=== PATIENT | male | born 1980 | race Caucasian/White ===

== ENCOUNTER 2016-04-29 19:15 | Emergency (ER) | payer MEDICARE, OTHER ==
[2016-04-29] MEDS ORDERED: PERCOCET 5MG/325MG TAB As Ordered ONE (21:07)
--- NOTE | 2016-04-29 22:05 | EDDOCDS ---
Nurse's Notes [facility] Name: Salbador Maldonado Age: 36 yrs Sex: Male : 1980 Arrival Date: 04/29/2016 Time: 19:15 Bed 17 Private MD: [place] Maria, [place] Diagnosis: Contusion of right elbow;Fall (on) (from) other stairs and steps Presentation: 04/29 19:35 Presenting complaint: Patient states: Pt down back stairs landing on right shoulder and ld5 elbow a couple of hours ago. Pt presents to ER with difficulty straightening arm. Adult Sepsis Screening: The patient does not have new or worsening altered mentation. Patient's respiratory rate is less than 22. Systolic blood pressure is greater than 100. Patient has a qSOFA score of 0- Negative Sepsis Screen. Suicide/Homicide risk assessment- the patient denies having any suicidal and/or homicidal ideations and does not present with any other emotional, behavioral or mental health complaints. Status: Patient is not a library services coordinator or dependent. Transition of care: patient was not received from another setting of care. 19:35 Acuity: MEET Level 4 ld5 19:35 Method Of Arrival: Walkin/Carried/Asstd ld5 Triage Assessment: 19:41 General: Appears in no apparent distress. Pain: Location: right arm Pain currently is 7 ld5 out of 10 on a pain scale. HIV screening NA for this visit Offered previously. Neurological: Level of Consciousness is awake, alert. Respiratory: Airway is patent Respiratory effort is even, unlabored. Musculoskeletal: Range of motion limited in right elbow Reports "sounds like something cracks when I try and move my arm". Historical: - Allergies: small pox vaccine; - Home Meds: 1. none - PMHx: fractured L3, L4, L5 vertebrae; Hypertension; PTSD; Adjustment disorder; Anxiety; Depression; - PSHx: C3 surgical repair; right ear surgery 1995; throat surgery 1993; meniscus and ACL repair bilaterally; right leg reconstruction 1980; right shoulder scoped 1991; ruptured both calf muscles; Right Tib/Fib/Femur Fracture Repair 1980; repair of broken jaw 1989; left knee surgery; - Social history: Smoking status: Patient uses tobacco products, current every day smoker. No barriers to communication noted, The patient speaks fluent Japanese, Speaks appropriately for age. - Family history: Not pertinent. - : The pt / caregiver states he / she is not on anticoagulants. Home medication list is obtained from the patient. - Exposure Risk Screening:: None identified. Screenin:02 Screening information is obtained from the patient. Fall risk: No risks identified. cf2 Assistance ADL's: requires no assistance with activities of daily living. Abuse/DV Screen: The patient / caregiver reports he/she is: not in a situation that causes fear, pain or injury. Nutritional screening: No deficits noted. Advance Directives: Further advance directive information is declined. home support is adequate. Assessment: 22:02 Reassessment: Patient appears in no apparent distress at this time. Patient states cf2 feeling better. Patient states symptoms have improved. General: Appears in no apparent distress, comfortable, Behavior is appropriate for age, cooperative. Pain: Location: right arm. Cardiovascular: No deficits noted. GI: No deficits noted. Musculoskeletal: No deficits noted. Injury Description: pt fell from standing. Vital Signs: 19:17 BP 161 / 79; Pulse 90; Resp 18 S; Temp 96.9(O); Pulse Ox 98% on R/A; Weight 136.08 kg gr2 (R); Height 74 in. (187.96 cm) (R); Pain 7/10; 19:17 Body Mass Index 38.52 (136.08 kg, 187.96 cm) gr2 Vitals: 19:17 Log In Time: April 29, 2016 at 19:17. gr2 ED Course: 19:16 Patient visited by Gomez Us. gr2 19:16 Patient moved to Waiting gr2 19:17 [facility] is Private Physician. gr2 19:18 Patient visited by Gomez Us. gr2 19:18 Patient moved to Pre RCE gr2 19:37 Triage Initiated ld5 19:42 Patient visited by Tosha Wren RN. ld5 20:51 Dewayne Barbosa FNP is [facility]. ke 20:51 Patient visited by Dewayne Barbosa FNP. ke 20:51 Patient visited by Dewayne Barbosa FNP. ke 20:51 Marifer Gaston,RN is Primary Nurse. cf2 20:51 Patient visited by Marifer Gaston,YOSEF. cf2 20:51 Patient moved to 17 cz 21:24 Patient visited by Dewayne Barbosa FNP. ke 21:32 [facility], [place] is Referral Physician. ke 21:56 Patient visited by Elder Gutierrez PCA. kb5 22:02 Patient visited by Marifer Gaston RN. cf2 22:02 The patient / caregiver is instructed regarding the plan of care and ED course. Patient cf2 has correct armband on for positive identification. Placed in gown. Bed in low position. Call light in reach. Side rails up X 1. Side rails up X2. Property :Personal belongings accompany Pt. 22:02 No IV's were initiated during this patient's visit. No procedures done that require cf2 assistance. 22:04 Nitin Bhardwaj DO is Attending Physician. cf2 Administered Medications: 21:13 Drug: oxyCODONE-acetaminophen 2 tabs [oxycodone-acetaminophen 5 mg-325 mg tablet (2 cf2 tabs)] Route: PO; 22:04 Follow up: Response: No significant change. cf2 Order Results: There are currently no results for this order. Outcome: 21:33 Discharge ordered by Provider. ke 22:02 Discharge Assessment: Patient awake, alert and oriented x 3. No cognitive and/or cf2 functional deficits noted. Patient verbalized understanding of disposition instructions. Patient Oriented to person, place and time. patient administered narcotics - yes. Pt provided with safe discharge. The following High Risk Discharge criteria are identified: None. Discharged to home. Condition: stable Condition: improved. Discharge instructions given to patient, Instructed on discharge instructions, follow up and referral plans. medication usage, Demonstrated understanding of instructions, medications, Prescriptions given X 2. No special radiology studies were completed. 22:04 Patient left the ED. cf2 Signatures: Blayne Raymundo, RN RN cz Dewayne Barbosa FNP FNP ke [place], Kristopher, PCA DRILLING SUPERVISOR kb5 Tosha Wren RN RN ld5 Gomez Us 2 Marifer Gaston,YOSEF RN cf2 MTDD
--- NOTE | 2016-04-29 22:05 | EDDOCDS ---
Physician Documentation [facility] Name: Salbador Maldonado Age: 36 yrs Sex: Male : 1980 Arrival Date: 04/29/2016 Time: 19:15 Bed 17 Private MD: [facility] Disposition: 04/29/16 21:33 Discharged to Home/Self Care. Impression: Contusion of right elbow, Fall (on) (from) other stairs and steps. - Condition is Stable. - Discharge Instructions: Fall Prevention and Home Safety, Elbow Contusion. - Prescriptions for Ibuprofen 600 mg Oral Tablet - take 1 tablet by ORAL route every 6 hours As needed take with food; 30 tablet. Zanaflex 4 mg Oral Tablet - take 1 tablet by ORAL route every 8 hours As needed; 20 tablet. - Medication Reconciliation, Local Pharmacy Hours form. - Follow up: [facility]; When: As needed; Reason: Recheck today's complaints, Continuance of care. - Problem is new. - Symptoms are unchanged. - Notes: ice 20 min an hour Historical: - Allergies: small pox vaccine; - Home Meds: 1. none - PMHx: fractured L3, L4, L5 vertebrae; Hypertension; PTSD; Adjustment disorder; Anxiety; Depression; - PSHx: C3 surgical repair; right ear surgery 1995; throat surgery 1993; meniscus and ACL repair bilaterally; right leg reconstruction 1980; right shoulder scoped 1991; ruptured both calf muscles; Right Tib/Fib/Femur Fracture Repair 1980; repair of broken jaw 1989; left knee surgery; - Social history: Smoking status: Patient uses tobacco products, current every day smoker. No barriers to communication noted, The patient speaks fluent Bulgarian, Speaks appropriately for age. - Family history: Not pertinent. - : The pt / caregiver states he / she is not on anticoagulants. Home medication list is obtained from the patient. - Exposure Risk Screening:: None identified. Vital Signs: 04/29 19:17 BP 161 / 79; Pulse 90; Resp 18 S; Temp 96.9(O); Pulse Ox 98% on R/A; Weight 136.08 kg / gr2 300.01 lbs (R); Height 74 in. (187.96 cm) (R); Pain 7/10; 19:17 Body Mass Index 38.52 (136.08 kg, 187.96 cm) gr2 MDM: 21:01 oxyCODONE-acetaminophen 5 mg-325 mg 2 tabs PO once ordered. ke 21:02 Elbow, Complete Ordered. EDMS 21:02 Humerus Ordered. EDMS Administered Medications: 21:13 Drug: oxyCODONE-acetaminophen 2 tabs [oxycodone-acetaminophen 5 mg-325 mg tablet (2 cf2 tabs)] Route: PO; 22:04 Follow up: Response: No significant change. cf2 Signatures: Dispatcher [employer] EDMS Dewayne Barbosa, METAL CHECKER METAL CHECKER Tosha Baum,RN RN ld5 Marifer Gaston,RN RN cf2 MTDD
--- NOTE | 2016-04-30 07:52 | REP ---
Clinical: Trauma. Technique: AP and lateral views of the right humerus. Findings: No acute fracture or dislocation. Skeletal structures, joint spaces, and surrounding soft tissues are normal for age. No subcutaneous emphysema or radiodense foreign body. Impression: No acute fracture or dislocation Signed by Mike Cruz MD 04/30/2016 07:44 A
--- NOTE | 2016-04-30 07:53 | REP ---
Clinical: Trauma . Technique: AP, lateral, bilateral oblique views of the right elbow. Findings: No acute fracture or dislocation is appreciated. Joint spaces and surrounding soft tissues appear normal. Lateral view demonstrates normal positioning to the anterior and posterior fat pads without evidence for effusion/hemarthrosis. No subcutaneous emphysema or foreign body identified. Impression: Normal right elbow radiographs. Signed by Mike Cruz MD 04/30/2016 07:44 A
--- NOTE | 2016-05-01 23:05 | EDDOCDS ---
Nurse's Notes [facility] Name: Salbador Maldonado Age: 36 yrs Sex: Male : 1980 Arrival Date: 04/29/2016 Time: 19:15 Bed 17 Private MD: [place] Maria, [place] Diagnosis: Contusion of right elbow;Fall (on) (from) other stairs and steps Presentation: 04/29 19:35 Presenting complaint: Patient states: Pt down back stairs landing on right shoulder and ld5 elbow a couple of hours ago. Pt presents to ER with difficulty straightening arm. Adult Sepsis Screening: The patient does not have new or worsening altered mentation. Patient's respiratory rate is less than 22. Systolic blood pressure is greater than 100. Patient has a qSOFA score of 0- Negative Sepsis Screen. Suicide/Homicide risk assessment- the patient denies having any suicidal and/or homicidal ideations and does not present with any other emotional, behavioral or mental health complaints. Status: Patient is not a engine repairer service or dependent. Transition of care: patient was not received from another setting of care. 19:35 Acuity: MEET Level 4 ld5 19:35 Method Of Arrival: Walkin/Carried/Asstd ld5 Triage Assessment: 19:41 General: Appears in no apparent distress. Pain: Location: right arm Pain currently is 7 ld5 out of 10 on a pain scale. HIV screening NA for this visit Offered previously. Neurological: Level of Consciousness is awake, alert. Respiratory: Airway is patent Respiratory effort is even, unlabored. Musculoskeletal: Range of motion limited in right elbow Reports "sounds like something cracks when I try and move my arm". Historical: - Allergies: small pox vaccine; - Home Meds: 1. none - PMHx: fractured L3, L4, L5 vertebrae; Hypertension; PTSD; Adjustment disorder; Anxiety; Depression; - PSHx: C3 surgical repair; right ear surgery 1995; throat surgery 1993; meniscus and ACL repair bilaterally; right leg reconstruction 1980; right shoulder scoped 1991; ruptured both calf muscles; Right Tib/Fib/Femur Fracture Repair 1980; repair of broken jaw 1989; left knee surgery; - Social history: Smoking status: Patient uses tobacco products, current every day smoker. No barriers to communication noted, The patient speaks fluent South African, Speaks appropriately for age. - Family history: Not pertinent. - : The pt / caregiver states he / she is not on anticoagulants. Home medication list is obtained from the patient. - Exposure Risk Screening:: None identified. Screenin:02 Screening information is obtained from the patient. Fall risk: No risks identified. cf2 Assistance ADL's: requires no assistance with activities of daily living. Abuse/DV Screen: The patient / caregiver reports he/she is: not in a situation that causes fear, pain or injury. Nutritional screening: No deficits noted. Advance Directives: Further advance directive information is declined. home support is adequate. Assessment: 22:02 Reassessment: Patient appears in no apparent distress at this time. Patient states cf2 feeling better. Patient states symptoms have improved. General: Appears in no apparent distress, comfortable, Behavior is appropriate for age, cooperative. Pain: Location: right arm. Cardiovascular: No deficits noted. GI: No deficits noted. Musculoskeletal: No deficits noted. Injury Description: pt fell from standing. Vital Signs: 19:17 BP 161 / 79; Pulse 90; Resp 18 S; Temp 96.9(O); Pulse Ox 98% on R/A; Weight 136.08 kg gr2 (R); Height 74 in. (187.96 cm) (R); Pain 7/10; 19:17 Body Mass Index 38.52 (136.08 kg, 187.96 cm) gr2 Vitals: 19:17 Log In Time: April 29, 2016 at 19:17. gr2 ED Course: 19:16 Patient visited by Gomez Us. gr2 19:16 Patient moved to Waiting gr2 19:17 [place] is Private Physician. gr2 19:18 Patient visited by Gomez Us. gr2 19:18 Patient moved to Pre RCE gr2 19:37 Triage Initiated ld5 19:42 Patient visited by Tosha Wren RN. ld5 20:51 [facility]. ke 20:51 Patient visited by Dewayne Barbosa FNP. ke 20:51 Patient visited by Dewayne Barbosa FNP. ke 20:51 Marifer Gaston,RN is Primary Nurse. cf2 20:51 Patient visited by Marifer Gaston,YOSEF. cf2 20:51 Patient moved to 17 cz 21:24 Patient visited by Dewayne Barbosa FNP. ke 21:32 [facility], [place] is Referral Physician. ke 21:56 Patient visited by Elder Gutierrez PCA. kb5 22:02 Patient visited by Marifer Gaston RN. cf2 22:02 The patient / caregiver is instructed regarding the plan of care and ED course. Patient cf2 has correct armband on for positive identification. Placed in gown. Bed in low position. Call light in reach. Side rails up X 1. Side rails up X2. Property :Personal belongings accompany Pt. 22:02 No IV's were initiated during this patient's visit. No procedures done that require cf2 assistance. 22:04 Nitin Bhardwaj DO is Attending Physician. cf2 04/30 08:26 Humerus Returned. EDMS 08:26 Elbow, Complete Returned. EDMS 12:12 T-Sheet-- Draft Copy was scanned into [employer] and attached to record. gb Administered Medications: 04/29 21:13 Drug: oxyCODONE-acetaminophen 2 tabs [oxycodone-acetaminophen 5 mg-325 mg tablet (2 cf2 tabs)] Route: PO; 22:04 Follow up: Response: No significant change. cf2 Order Results: Radiology Order: Elbow, Complete Test: Elbow, Complete REASON FOR EXAMINATION: Trauma; Clinical: Trauma .; ; Technique: AP, lateral, bilateral oblique views of the right elbow.; ; Findings:; No acute fracture or dislocation is appreciated. Joint spaces and surrounding; soft tissues appear normal. Lateral view demonstrates normal positioning to the; anterior and posterior fat pads without evidence for effusion/hemarthrosis. No; subcutaneous emphysema or foreign body identified.; ; Impression:; Normal right elbow radiographs.; ; ; Signed by; Mike Cruz MD 04/30/2016 07:44 A; Radiology Order: Humerus Test: Humerus REASON FOR EXAMINATION: Trauma; Clinical: Trauma.; ; Technique: AP and lateral views of the right humerus.; ; Findings:; No acute fracture or dislocation. Skeletal structures, joint spaces, and; surrounding soft tissues are normal for age. No subcutaneous emphysema or; radiodense foreign body.; ; Impression:; No acute fracture or dislocation; ; ; Signed by; Mike Cruz MD 04/30/2016 07:44 A; Outcome: 21:33 Discharge ordered by Provider. gary 22:02 Discharge Assessment: Patient awake, alert and oriented x 3. No cognitive and/or cf2 functional deficits noted. Patient verbalized understanding of disposition instructions. Patient Oriented to person, place and time. patient administered narcotics - yes. Pt provided with safe discharge. The following High Risk Discharge criteria are identified: None. Discharged to home. Condition: stable Condition: improved. Discharge instructions given to patient, Instructed on discharge instructions, follow up and referral plans. medication usage, Demonstrated understanding of instructions, medications, Prescriptions given X 2. No special radiology studies were completed. 22:04 Patient left the ED. cf2 Signatures: Dispatcher [employer] EDMS Blayne Raymundo, RN RN Harleen Menjivar, Matthew Reg Dewayne Mays, GLORY HOLE TENDER GLORY HOLE TENDER Elder Kirby, ANY CLASSROOM INSTRUCTIONAL AIDE kb5 Tosha Wren RN RN ld5 Gomez Us gr2 Marifer GastonRN RN cf2 Chart Complete NAYA
--- NOTE | 2016-05-01 23:05 | EDDOCDS ---
Physician Documentation [facility] Name: Salbador Maldonado Age: 36 yrs Sex: Male : 1980 Arrival Date: 04/29/2016 Time: 19:15 Bed 17 Private MD: [facility] Disposition: 04/29/16 21:33 Discharged to Home/Self Care. Impression: Contusion of right elbow, Fall (on) (from) other stairs and steps. - Condition is Stable. - Discharge Instructions: Fall Prevention and Home Safety, Elbow Contusion. - Prescriptions for Ibuprofen 600 mg Oral Tablet - take 1 tablet by ORAL route every 6 hours As needed take with food; 30 tablet. Zanaflex 4 mg Oral Tablet - take 1 tablet by ORAL route every 8 hours As needed; 20 tablet. - Medication Reconciliation, Local Pharmacy Hours form. - Follow up: [facility]; When: As needed; Reason: Recheck today's complaints, Continuance of care. - Problem is new. - Symptoms are unchanged. - Notes: ice 20 min an hour Historical: - Allergies: small pox vaccine; - Home Meds: 1. none - PMHx: fractured L3, L4, L5 vertebrae; Hypertension; PTSD; Adjustment disorder; Anxiety; Depression; - PSHx: C3 surgical repair; right ear surgery 1995; throat surgery 1993; meniscus and ACL repair bilaterally; right leg reconstruction 1980; right shoulder scoped 1991; ruptured both calf muscles; Right Tib/Fib/Femur Fracture Repair 1980; repair of broken jaw 1989; left knee surgery; - Social history: Smoking status: Patient uses tobacco products, current every day smoker. No barriers to communication noted, The patient speaks fluent Sinhala, Speaks appropriately for age. - Family history: Not pertinent. - : The pt / caregiver states he / she is not on anticoagulants. Home medication list is obtained from the patient. - Exposure Risk Screening:: None identified. Vital Signs: 04/29 19:17 BP 161 / 79; Pulse 90; Resp 18 S; Temp 96.9(O); Pulse Ox 98% on R/A; Weight 136.08 kg / gr2 300.01 lbs (R); Height 74 in. (187.96 cm) (R); Pain 7/10; 19:17 Body Mass Index 38.52 (136.08 kg, 187.96 cm) gr2 MDM: 21:01 oxyCODONE-acetaminophen 5 mg-325 mg 2 tabs PO once ordered. ke 21:02 Elbow, Complete Ordered. EDMS 21:02 Humerus Ordered. EDMS 04/30 12:12 T-Sheet-- Draft Copy was scanned into [employer] and attached to record. gb Administered Medications: 04/29 21:13 Drug: oxyCODONE-acetaminophen 2 tabs [oxycodone-acetaminophen 5 mg-325 mg tablet (2 cf2 tabs)] Route: PO; 22:04 Follow up: Response: No significant change. cf2 Signatures: Dispatcher [employer] EDMS Harleen Rico, Reg Reg gb Dewayne Barbosa, SATELLITE TV TECHNICIAN INSTALLER SATELLITE TV TECHNICIAN INSTALLER Tosha Baum,RN RN ld5 Marifer GastonRN RN cf2 The chart was reviewed and I authenticate all verbal orders and agree with the evaluation and treatment provided.Attachments: 04/30 12:12 T-Sheet-- Draft Copy gb Chart Complete MTDD
--- NOTE | 2016-05-01 23:05 | EDDOCDS ---
Physician Documentation [facility] Name: Salbador Maldonado Age: 36 yrs Sex: Male : 1980 Arrival Date: 04/29/2016 Time: 19:15 Bed 17 Private MD: [facility] Disposition: 04/29/16 21:33 Discharged to Home/Self Care. Impression: Contusion of right elbow, Fall (on) (from) other stairs and steps. - Condition is Stable. - Discharge Instructions: Fall Prevention and Home Safety, Elbow Contusion. - Prescriptions for Ibuprofen 600 mg Oral Tablet - take 1 tablet by ORAL route every 6 hours As needed take with food; 30 tablet. Zanaflex 4 mg Oral Tablet - take 1 tablet by ORAL route every 8 hours As needed; 20 tablet. - Medication Reconciliation, Local Pharmacy Hours form. - Follow up: [facility]; When: As needed; Reason: Recheck today's complaints, Continuance of care. - Problem is new. - Symptoms are unchanged. - Notes: ice 20 min an hour Historical: - Allergies: small pox vaccine; - Home Meds: 1. none - PMHx: fractured L3, L4, L5 vertebrae; Hypertension; PTSD; Adjustment disorder; Anxiety; Depression; - PSHx: C3 surgical repair; right ear surgery 1995; throat surgery 1993; meniscus and ACL repair bilaterally; right leg reconstruction 1980; right shoulder scoped 1991; ruptured both calf muscles; Right Tib/Fib/Femur Fracture Repair 1980; repair of broken jaw 1989; left knee surgery; - Social history: Smoking status: Patient uses tobacco products, current every day smoker. No barriers to communication noted, The patient speaks fluent Vietnamese, Speaks appropriately for age. - Family history: Not pertinent. - : The pt / caregiver states he / she is not on anticoagulants. Home medication list is obtained from the patient. - Exposure Risk Screening:: None identified. Vital Signs: 04/29 19:17 BP 161 / 79; Pulse 90; Resp 18 S; Temp 96.9(O); Pulse Ox 98% on R/A; Weight 136.08 kg / gr2 300.01 lbs (R); Height 74 in. (187.96 cm) (R); Pain 7/10; 19:17 Body Mass Index 38.52 (136.08 kg, 187.96 cm) gr2 MDM: 21:01 oxyCODONE-acetaminophen 5 mg-325 mg 2 tabs PO once ordered. ke 21:02 Elbow, Complete Ordered. EDMS 21:02 Humerus Ordered. EDMS 04/30 12:12 T-Sheet-- Draft Copy was scanned into [employer] and attached to record. gb Administered Medications: 04/29 21:13 Drug: oxyCODONE-acetaminophen 2 tabs [oxycodone-acetaminophen 5 mg-325 mg tablet (2 cf2 tabs)] Route: PO; 22:04 Follow up: Response: No significant change. cf2 Signatures: Dispatcher [employer] EDMS Harleen Rico, Reg Reg gb Dewayne Barbosa, MANAGER INTERFACE MANAGER INTERFACE Tosha Baum,RN RN ld5 Marifer GastonRN RN cf2 The chart was reviewed and I authenticate all verbal orders and agree with the evaluation and treatment provided.Attachments: 04/30 12:12 T-Sheet-- Draft Copy gb Chart Complete MTDD
== END 2016-04-29 22:04 | disposition home or self-care (01) ==
LOC: M ED 19:15
DX: S50.01XA Contusion of right elbow, initial encounter (principal); W10.8XXA Fall (on) (from) other stairs and steps, initial encounter; Y92.018 Other place in single-family (private) house as the place of occurrence of the external cause; Y93.89 Activity, other specified; Y99.8 Other external cause status; I10 Essential (primary) hypertension; F41.9 Anxiety disorder, unspecified; F43.20 Adjustment disorder, unspecified; F32.9 Major depressive disorder, single episode, unspecified; F43.10 Post-traumatic stress disorder, unspecified; Z87.81 Personal history of (healed) traumatic fracture; Z88.7 Allergy status to serum and vaccine

== ENCOUNTER 2016-08-27 12:04 | Emergency (ER) | payer MEDICARE, OTHER ==
[~2016-08-27] VITALS: Ht 188 cm; Wt 131.5 kg
[2016-08-27] MEDS ORDERED: LISI-542 PO (12:14)
[2016-08-27] MEDS ORDERED: ATOR1TAB21 PO (12:14)
[2016-08-27] MEDS ORDERED: NORCO, ANEXSIA 5/325MG TABLET (HYDROcodone/ACETAMINOPHEN) PO ONE (12:30)
[2016-08-27] MEDS ORDERED: HYDR-3713 PO (13:14)
[2016-08-27] MEDS ORDERED: AUGM875T27 PO (13:14)
[2016-08-27 13:20] VITALS: BP 141/78
--- NOTE | 2016-08-27 13:57 | REP ---
RIGHT FOOT SERIES: TWO VIEWS. HISTORY: Question foreign body at the base the 4th. FINDINGS: AP and lateral views of the right foot show no opaque foreign body. Overall mineralization pattern is normal. Joint spaces are preserved. IMPRESSION: Negative radiographs of the right foot. No opaque foreign body seen. Signed by Juvenal Gabriel MD 08/27/2016 03:06 P
== END 2016-08-27 13:23 | disposition home or self-care (01) ==
LOC: M ED 13:03
DX: S91.331A Puncture wound without foreign body, right foot, initial encounter (principal); W22.8XXA Striking against or struck by other objects, initial encounter; Y92.099 Unspecified place in other non-institutional residence as the place of occurrence of the external cause; Y93.89 Activity, other specified; Y99.9 Unspecified external cause status; I10 Essential (primary) hypertension; E66.9 Obesity, unspecified; F17.200 Nicotine dependence, unspecified, uncomplicated; Z79.899 Other long term (current) drug therapy; Z88.7 Allergy status to serum and vaccine

== ENCOUNTER 2016-09-13 22:31 | Emergency (ER) | payer MEDICARE, OTHER ==
[~2016-09-13] VITALS: Ht 185.4 cm; Wt 138.3 kg
[~2016-09-13 22:31] MED LIST: ATOR1TAB21 PO; AUGM875T27 PO; HYDR-3713 PO; LISI-542 PO
[2016-09-14] MEDS ORDERED: DICL500C PO (00:44)
[2016-09-14] MEDS ORDERED: DICLOXACILLIN 250 MG CAP PO SCH (00:45)
[2016-09-14 01:17] VITALS: BP 156/78
== END 2016-09-14 01:15 | disposition home or self-care (01) ==
LOC: M ED 09-14 00:55
DX: M70.21 Olecranon bursitis, right elbow (principal); I10 Essential (primary) hypertension; E78.5 Hyperlipidemia, unspecified; F17.200 Nicotine dependence, unspecified, uncomplicated; Z79.899 Other long term (current) drug therapy; Z88.7 Allergy status to serum and vaccine

== ENCOUNTER 2017-09-15 03:45 | Emergency (ER) | payer MEDICARE, OTHER ==
[2017-09-15] MEDS: CORTISPORIN OPHTH OINT 3.5 GM OU (04:45)
[2017-09-15] MEDS: TETRACAINE 0.5% OPHTH SOLN 4ML OU (04:45)
== END 2017-09-15 05:08 | disposition home or self-care (01) ==
LOC: M ED 03:45
DX: H10.9 Unspecified conjunctivitis (principal); I10 Essential (primary) hypertension; E78.5 Hyperlipidemia, unspecified; Z88.7 Allergy status to serum and vaccine
CPT/HCPCS: 99282

== ENCOUNTER 2018-02-21 08:39 | Emergency (ER) | payer MEDICARE, OTHER ==
[2018-02-21] MEDS: IBUPROFEN 800 MG TAB PO (09:24)
[2018-02-21] MEDS: ACETAMINOPHEN 325 MG TAB PO (09:24)
[2018-02-21] MEDS: IPRATROPIUM 0.5MG/ALBUTEROL 2.5MG INH SOL UD 3ML (DUONEB)(J7620) NEB (09:30)
[2018-02-21 10:04] LABS: INFLUENZA A AMPLIFICATION NEGATIVE (NEGATIVE); INFLUENZA B AMPLIFICATION NEGATIVE (NEGATIVE); RSV AMPLIFICATION NEGATIVE (NEGATIVE)
[2018-02-21] MEDS: cefTRIAXone SOD 1 GM VIAL (J0696) IM (10:21)
== END 2018-02-21 10:30 | disposition home or self-care (01) ==
LOC: M ED 08:39
DX: J18.9 Pneumonia, unspecified organism (principal); I10 Essential (primary) hypertension; F41.9 Anxiety disorder, unspecified; F43.10 Post-traumatic stress disorder, unspecified; Z87.820 Personal history of traumatic brain injury; F17.200 Nicotine dependence, unspecified, uncomplicated; Z88.7 Allergy status to serum and vaccine; Z79.899 Other long term (current) drug therapy
CPT/HCPCS: J0696

== ENCOUNTER → 2019-12-19 | Outpatient (REF) | payer MEDICARE, OTHER ==
[~2019-12-19] MED LIST changes: -AUGM875T27 PO; +AUGM875T28 PO; +CBD OIL PO; +DICL500C PO; +PROAAER10 INH; +ZITHTAB PO
== END ==
LOC: M LAB REF 09:30
PROVIDERS: ATTEND Urology
DX: Z98.52 Vasectomy status (principal)

== ENCOUNTER → 2023-05-27 | Outpatient (CLI) | payer MEDICARE, OTHER ==
[~2023-05-27] MED LIST changes: -LISI-542 PO; +LISI5TAB11 PO
[2023-05-27 19:52] LABS: BASO # 0.1 10^3/uL (0.0-0.2); BASO % 0.4 % (0.0-1.0); EOS # 0.1 10^3/uL (0.0-0.5); HEMATOCRIT 44.8 % (42.0-52.0); HEMOGLOBIN 15.4 g/dl (13.5-17.5); LYMPH # 4.2 10^3/uL (1.5-5.0); LYMPH % 31.3 % (24.0-44.0); MEAN CORPUSCULAR HEMOGLOBIN 30.7 pg (27.0-33.0); MEAN CORPUSCULAR HGB CONC 34.4 g/dl (32.0-36.5); MEAN CORPUSCULAR VOLUME 89.4 fl (80.0-96.0); MONO # 0.9 10^3/uL (0.0-0.8); MONO % 6.7 % (2.0-8.0); NEUTROPHILS # 8.1 10^3/uL (1.5-8.5); NEUTROPHILS % 60.2 % (36.0-66.0); PLATELET COUNT, AUTOMATED 210 10^3/uL (150-450); RED BLOOD COUNT 5.01 10^6/uL (4.30-6.10); WHITE BLOOD COUNT 13.5 10^3/uL (4.0-10.0)
[2023-05-27 19:57] LABS: ERYTHROCYTE SEDIMENTATION RATE 30 mm/hr (0-15)
[2023-05-27 20:19] LABS: URIC ACID 8.3 MG/DL (3.7-9.2)
[2023-05-27 20:23] LABS: ALBUMIN 3.8 G/DL (3.2-5.2); ALKALINE PHOSPHATASE 115 U/L (46-116); ALT/SGPT 26 U/L (7.0-40); AST/SGOT 16 U/L (<34); BILIRUBIN,TOTAL 0.4 MG/DL (0.3-1.2); BLOOD UREA NITROGEN 19 MG/DL (9-23); CALCIUM LEVEL 9.2 MG/DL (8.5-10.1); CARBON DIOXIDE LEVEL 28 MMOL/L (20-31); CHLORIDE LEVEL 106 MMOL/L (98-107); CREATININE FOR GFR 1.05 MG/DL (0.70-1.30); GLOMERULAR FILTRATION RATE > 60.0 (>60); GLUCOSE, FASTING 84 MG/DL (60-100); SODIUM LEVEL 140 MMOL/L (136-145); TOTAL PROTEIN 7.2 G/DL (5.7-8.2)
[2023-05-30 14:09] LABS: IgG P18 AB Absent (.); IgG P23 AB Absent (.); IgG P28 AB Absent (.); IgG P30 AB Absent (.); IgG P39 AB Present (.); IgG P41 AB Absent (.); IgG P45 AB Absent (.); IgG P66 AB Absent (.); IgG P93 AB Absent (.); IgM P23 AB Absent (.); IgM P39 AB Absent (.); IgM P41 AB Absent (.); LYME IgG WB INTERPRETATION Negative (.); LYME IgM WB INTERPRETATION Negative (.)
== END ==
LOC: M LAB 19:08
PROVIDERS: ATTEND Physician Assistant
DX: M25.562 Pain in left knee (principal)